=== PATIENT | male | born 1965 | race Caucasian/White ===

== ENCOUNTER 2025-09-08 03:06 | Inpatient (IN) | payer OTHER ==
[~2025-09-08] VITALS: Ht 175.3 cm; Wt 104.7 kg
[2025-09-08] MEDS ORDERED: NS 1,000 ML IV SCH (03:20)
[2025-09-08] MEDS ORDERED: Diltiazem HCl 5 MG / ML 5ML Vial IV ONE ×2 (03:20→04:05)
[2025-09-08 03:31] LABS: BASOPHILS ABSOLUTE AUTO 0.03 K/mm3 (0.00-0.23); BASOPHILS PERCENT AUTO 0 % (0-2); EOSINOPHILS ABSOLUTE AUTO 0.23 K/mm3 (0.00-0.68); EOSINOPHILS PERCENT AUTO 3 % (0-6); Hematocrit 44.1 % (37.0-53.0); Hemoglobin 14.6 g/dL (13.5-17.5); IMMATURE GRAN ABSOLUTE AUTO 0.05 K/mm3 (0.00-0.10); IMMATURE GRAN PERCENT AUTO 1 % (0-1); LYMPHOCYTES ABSOLUTE AUTO 2.43 K/mm3 (0.84-5.20); LYMPHOCYTES PERCENT AUTO 35 % (21-46); MONOCYTES ABSOLUTE AUTO 0.66 K/mm3 (0.16-1.47); MONOCYTES PERCENT AUTO 10 % (4-13); Mean Corpuscular HGB Conc 33.1 g/dL (31.5-36.5); Mean Corpuscular Volume 85 fL (80-100); NEUTROPHILS ABSOLUTE AUTO 3.46 K/mm3 (1.96-9.15); NEUTROPHILS PERCENT AUTO 51 % (41-73); NRBC ABSOLUTE 0.00 K/mm3 (0.00-0.02); NRBC Auto 0.0 /100 WBC (0.0-0.2); Platelet Count 209 K/mm3 (150-400); RDW Coefficient Variation 13.2 % (11.7-14.2); RDW Standard Deviation 41.6 fL (35.1-46.3)
[2025-09-08 03:57] LABS: Anion Gap 12.0 mmol/L (3-11); Blood Urea Nitrogen 14.0 mg/dL (8-24); CO2, Blood 22.0 mmol/L (21-32); Calcium, Blood 8.5 mg/dL (8.5-10.1); Chloride, Blood 107.0 mmol/L (98-108); Creatinine, Blood 0.69 mg/dL (0.60-1.20); Glucose, Blood 181.0 mg/dL (70-99); Magnesium, Blood 2.0 mg/dL (1.6-2.4); Potassium, Blood 3.5 mmol/L (3.5-5.5); Sodium, Blood 137.0 mmol/L (136-145); Thyroid Stimulating Hormone 1.93 uIU/mL (0.360-4.800)
[2025-09-08] MEDS ORDERED: Metoprolol Tartrate 1 MG/ML 5 ML VIAL IV ONE (04:20)
[2025-09-08] MEDS ORDERED: Ondansetron HCl 2 MG / ML 2ML Vial IV PRN (05:05)
[2025-09-08] MEDS ORDERED: FLU VACC TS2025-26(6MOS UP)/PF 45 MCG/0.5 ML SYRINGE IM SCH (05:05)
--- NOTE | 2025-09-08 08:07 | NUR ---
PT ARRIVED TO UNIT FROM ER VIA [facility]. PT AMBULATED FROM GURNEY TO BED W/NO ASSISTANCE. PT IS A&Ox4 AND ABLE TO MAKE NEEDS KNOWN. HE IS ON RA SATS > 92%. DILTIAZEM GTT RUNNING @ 15MG/HR. ADMISSION HISTORY AND MED REC COMPLETED. NO OTHER NEEDS OR CONCERNS NOTED @ THIS TIME. BED IN LOW POSITION, CALL LIGHT AND PERSONAL BELONGINGS IN REACH.
[2025-09-08 08:16] VITALS: BP 152/104
[2025-09-08] MEDS ORDERED: HYDROcodone 5-APAP 325 TAB PO PRN (08:45)
[2025-09-08] MEDS ORDERED: Enoxaparin 40 MG/0.4 ML SYR SC SCH (09:00)
[2025-09-08 10:29] LABS: U Amphetamine Screen Not Detected; U Barbiturate Screen Not Detected; U Benzodiazapine Screen Not Detected; U Buprenorphine Screen Not Detected; U Cannabinoids Screen Not Detected; U Cocaine Screen Not Detected; U Methadone Screen Not Detected; U Methamphetamine Screen Not Detected; U Opiates Screen Not Detected; U Oxycodone Screen Not Detected; U Phencyclidine Screen Not Detected
[2025-09-08 11:09] VITALS: BP 135/97
[2025-09-08 15:45] VITALS: BP 146/88
--- NOTE | 2025-09-08 17:50 | NUR ---
DILTIAZEM GTT WAS TURNED OFF @ 1629 AND THEN TURNED BACK ON @1750. IT IS RUNNING @ 5MG/HR. NO NEEDS OR CONCERNS NOTED @ THIS TIME. BED IN LOW POSITION, CALL LIGHT AND PERSONAL BELONGINGS IN REACH.
[2025-09-08 19:19] VITALS: BP 147/105
[2025-09-09 00:45] VITALS: BP 136/107
[2025-09-09 03:54] VITALS: BP 137/79
[2025-09-09 04:24] LABS: BASOPHILS ABSOLUTE AUTO 0.05 K/mm3 (0.00-0.23); BASOPHILS PERCENT AUTO 1 % (0-2); EOSINOPHILS ABSOLUTE AUTO 0.31 K/mm3 (0.00-0.68); EOSINOPHILS PERCENT AUTO 3 % (0-6); Hematocrit 43.7 % (37.0-53.0); Hemoglobin 14.4 g/dL (13.5-17.5); IMMATURE GRAN ABSOLUTE AUTO 0.05 K/mm3 (0.00-0.10); IMMATURE GRAN PERCENT AUTO 1 % (0-1); LYMPHOCYTES ABSOLUTE AUTO 2.53 K/mm3 (0.84-5.20); LYMPHOCYTES PERCENT AUTO 25 % (21-46); MONOCYTES ABSOLUTE AUTO 0.78 K/mm3 (0.16-1.47); MONOCYTES PERCENT AUTO 8 % (4-13); Mean Corpuscular HGB Conc 33.0 g/dL (31.5-36.5); Mean Corpuscular Volume 84 fL (80-100); NEUTROPHILS ABSOLUTE AUTO 6.60 K/mm3 (1.96-9.15); NEUTROPHILS PERCENT AUTO 64 % (41-73); NRBC ABSOLUTE 0.00 K/mm3 (0.00-0.02); NRBC Auto 0.0 /100 WBC (0.0-0.2); Platelet Count 217 K/mm3 (150-400); RDW Coefficient Variation 13.3 % (11.7-14.2); RDW Standard Deviation 41.2 fL (35.1-46.3)
[2025-09-09 04:50] LABS: Anion Gap 9.0 mmol/L (3-11); Blood Urea Nitrogen 11.0 mg/dL (8-24); CO2, Blood 26.0 mmol/L (21-32); Calcium, Blood 9.2 mg/dL (8.5-10.1); Chloride, Blood 104.0 mmol/L (98-108); Creatinine, Blood 0.82 mg/dL (0.60-1.20); Glucose, Blood 155.0 mg/dL (70-99); Potassium, Blood 4.2 mmol/L (3.5-5.5); Sodium, Blood 135.0 mmol/L (136-145)
--- NOTE | 2025-09-09 06:12 | NUR ---
SHIFT SUMMARY PT A&O X4, CALM, COOPERATIVE TO CARE. HR RANGING FROM 90'S-130'S. PT HR INCREASES WITH EXERTION. HE DENIES ANY CP/PRESSURE, NUMB/TINGLING, SBP STABLE. PT ON CARDIZEM GTT, INFUSING PER EMAR. SpO2 >92% ON RA, HE DENIES ANY SOB. PT HAS URINAL AT BEDSIDE. NO ACUTE CHANGES T/O NIGHT. PT RESTING IN BED AT THIS TIME. CALL LIGHT IN REACH. WILL MONITOR PT AND REPORT TO ONCOMING RN.
[2025-09-09 09:04] VITALS: BP 164/94
[2025-09-09 12:56] VITALS: BP 155/100
[2025-09-09] MEDS ORDERED: Aspir 8181 MG PO (14:05)
[2025-09-09] MEDS ORDERED: CARV6.25 PO (14:06)
[2025-09-09] MEDS ORDERED: LOSA50 PO (14:06)
--- NOTE | 2025-09-09 14:57 | NUR ---
SHIFT SUMMARY/DISCHARGE PATIENT AOX4 ABLE TO MAKE NEEDS KNOWN. HE DENIES CP OR SOB, HIS VITALS ARE STABLE. BEGINING OF SHIFT HR AFIB 90-120 WITH DILT GTT AT 10. THEN IT WAS DECREASED TO 5 AT 1100. HE CONVERTED HR 70-80s HOSPITALIST AWARE OK TO DISCHARGE. PATIENT UNDERSTANDS ALL DISCHARGE INSRUCTIONS AND IVs REMOVED.
== END 2025-09-09 14:30 | disposition home or self-care (01) | DRG 310 ==
LOC: ER 03:06 → PCU 05:03 → ERHOLD 05:03 → PCU 08:15
PROVIDERS: Emergency Medicine; Internal Medicine; ADMIT Student in an Organized Health Care Education/Training Program
DX: I48.91 Unspecified atrial fibrillation (principal); I10 Essential (primary) hypertension; E66.9 Obesity, unspecified; Z68.34 Body mass index [BMI] 34.0-34.9, adult; F10.90 Alcohol use, unspecified, uncomplicated
CPT/HCPCS: 36415; 71045; 80048; 83735; 84439; 84443; 84484; 85025; 85379; 93005; 93010; 94762; 96361; 96374; 96375; 96376; 99285-25; A9270; C8929; J1650; J7030; J7120; Q9957